=== PATIENT | female | born 1990 | race American Indian/Alaskan Native ===

== ENCOUNTER 2021-12-02 11:55 | Emergency (ER) | payer SELFPAY | END 2021-12-02 13:15 | disposition left against medical advice (07) | LOC: ED 11:55 | DX: Z13.30 Encounter for screening examination for mental health and behavioral disorders, unspecified (principal); Z53.21 Procedure and treatment not carried out due to patient leaving prior to being seen by health care provider ==

== ENCOUNTER 2022-02-19 10:51 | Emergency (ER) | payer SELFPAY ==
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
[2022-02-19 14:23] VITALS: BP 128/76
== END 2022-02-19 18:00 | disposition home or self-care (01) ==
LOC: ED 10:51
DX: M62.830 Muscle spasm of back (principal); M54.50 Low back pain, unspecified; M62.838 Other muscle spasm; M54.2 Cervicalgia; Z79.899 Other long term (current) drug therapy; V89.2XXA Person injured in unspecified motor-vehicle accident, traffic, initial encounter; Y93.89 Activity, other specified; Y92.488 Other paved roadways as the place of occurrence of the external cause; Y99.8 Other external cause status
CPT/HCPCS: 72040; 72100; 99283